=== PATIENT | female | born 1950 | race Asian ===

== ENCOUNTER 2019-08-13 12:29 | IRF | payer MEDICARE, OTHER, SELFPAY ==
[2019-08-13 12:30] VITALS: BP 108/52; PULSE 76; RESP 18; TEMP 36.8; O2SAT 99; BMI 25.6
--- NOTE | 2019-08-13 12:30 | ADMGEN ---
This patient, Margarette Beckman, was admitted to [facility] Room 230-02. Patient/family oriented to hospital policies and general routines including ID bracelet, bed and alarms, visiting hours, pain management, procedures, bathroom and other care routines, personal items, smoking policy, room service/diet, and visiting hours. Valuables list has been completed. Information on how to activate the Rapid Response Team has been discussed. Patient/Family are encouraged to report perceived risks to care and to ask questions if they do not understand what they are told or what they should do.
[2019-08-13 13:39] VITALS: BMI 26.4
[2019-08-13] MEDS: TRAMADOL HCL 50 MG TABLET PO (15:59)
[2019-08-13 17:11] LABS: Glucose Point of Care 190 (65-105)
[2019-08-13] MEDS: metFORMIN HCL 500 MG TABLET 1000 MG PO (18:21)
[2019-08-13 20:14] LABS: Glucose Point of Care 221 (65-105)
[2019-08-13 22:00] VITALS: BP 120/64; PULSE 74; RESP 17; TEMP 37.2; O2SAT 95
[2019-08-14 05:14] LABS: Basophils Percent Auto 0.2 % (0.2-1.2); Eosinophils Absolute Auto 0.2 K/mm3 (0-0.3); Eosinophils Percent Auto 4.2 % (0-4.4); Hematocrit 34.9 % (37.0-47.0); Hemoglobin 11.5 g/dL (12.0-15.0); Immature Granulocyte Absolute 0.01 K/mm3 (0.00-0.031); Immature Granulocyte Percent A 0.2 % (0-0.5); Lymphocytes Absolute Auto 1.05 K/mm3 (0.9-3.2); Lymphocytes Percent Auto 20.2 % (18.3-44.2); Mean Corpuscular Hemoglobin 30.7 pg (26-34); Mean Corpuscular Volume 93.3 fl (80-100); Mean Platelet Volume 11.3 fl (7.4-10.4); Monocytes Absolute Auto 0.4 K/mm3 (0.1-0.6); Monocytes Percent Auto 7.1 % (2.6-8.5); Neutrophils Absolute Auto 3.5 K/mm3 (1.3-6.7); Neutrophils Percent Auto 68.1 % (45.5-73.1); Platelet Count Result 174 k/mm3 (150-375); Red Blood Count 3.74 M/mm3 (4.2-5.4); Red Cell Distribution Width 12.1 % (11.5-14.5); White Blood Count 5.2 K/mm3 (4.5-10.0)
[2019-08-14 05:27] LABS: Blood Urea Nitrogen 14 mg/dL (7-17); Calcium 8.2 mg/dL (8.4-10.2); Carbon Dioxide 29 mmol/L (22-30); Chloride 102 mmol/L (98-107); Estimated CRCL calculation 79 ml/min; Estimated Glomerular Filt Rate > 60; Glucose 177 mg/dL (65-105); Potassium 3.4 mmol/L (3.4-5.0); Sodium 135 mmol/L (137-145)
[2019-08-14 05:29] LABS: Hemoglobin A1C 7.7 % (<5.7)
[2019-08-14 06:00] VITALS: BP 123/59; PULSE 66; RESP 17; TEMP 37.1; O2SAT 99
[2019-08-14 06:50] LABS: Glucose Point of Care 167 (65-105)
[2019-08-14 08:58] VITALS: BMI 26.4
[2019-08-14] MEDS: PIOGLITAZONE HCL 30 MG TABLET PO (09:33)
[2019-08-14] MEDS: ATORVASTATIN 40 MG TABLET 80 MG PO (09:34)
[2019-08-14] MEDS: CHOLECALCIFEROL 1,000 UNIT TABLET 5000 UNITS PO (09:34)
[2019-08-14] MEDS: lisinopriL 20 MG TABLET PO (09:34)
[2019-08-14] MEDS: metFORMIN HCL 500 MG TABLET 1000 MG PO (09:34)
[2019-08-14] MEDS: CALCIUM CARBONATE (OSCAL) 500 MG TABLET PO (09:34)
[2019-08-14 11:36] LABS: Glucose Point of Care 173 (65-105)
[2019-08-14 14:00] VITALS: BP 130/64; PULSE 72; RESP 20; O2SAT 100
--- NOTE | 2019-08-14 16:28 | REHAB_ITS ---
DATE OF SERVICE: 08/14/2019 A 69-year-old right-handed female has been admitted to [facility] with the primary rehab impairment category of 03, that is brain dysfunction nontraumatic and etiological diagnosis of large acute on subacute right hemispheric dural hematoma with significant mass effect and herniation. The patient was seen [id number] on 08/14/2019 at 11:00 a.m. HISTORY OF PRESENT ILLNESS: A 69-year-old right-handed female with past medical history of uncontrolled diabetes mellitus type 2, hyperlipidemia, hypertension, lumbar radiculopathy and osteopenia, presented to [facility] on 08/09/2019 with complaints of back pain and left lower extremity weakness of 3 days duration in addition to the complaint of headache of the last 2 weeks duration and also with no history of trauma or loss of consciousness. She did report multiple falls in the past few days and has been unable to ambulate on her own and has required help from her and son. Initial evaluation documented acute on subacute right hemispheric subdural hematoma with significant mass effect and herniation. She was given anticonvulsant Keppra and mannitol in the emergency department. Neurosurgical service was consulted and the patient underwent emergent right frontotemporal craniotomy for the evacuation of the hematoma. Postoperatively, she experienced pain, became anemic, hyperglycemic and hypertensive. She was on oral pain medication. Her hemoglobin was stable, but definitely needed to be monitored in the future. Her diabetic medications restarted, those were on hold since admission. Hypertension was being controlled with lisinopril. She passed her swallowing test and was on regular consistent diabetic diet with thin liquids. The patient has history of mild arthritis. CT scan of the lumbar spine revealed disk bulging at L4-L5 and L5-S1 with the narrowing of the right lateral recess at L4-L5 and bulging L5-S1 disk abutting the S1 nerve root bilaterally. The patient's lumbar radiculopathy has caused the left lower extremity, which was the patient's baseline, not as a result of the brain surgery. She was discharged to rehab with compression devices as anticoagulation was on hold in the setting of the brain surgery. The patient has not traveled outside the [place] or had contact with someone who is ill or has traveled outside the [place] in the last 21 days. The patient has not traveled to any area of [place] that was experiencing any known transmission of the coronavirus and has not had any close personal contact with anyone that has the coronavirus. She has no fever and not experiencing lower respiratory illness symptoms. Therapy was initiated at the Acute Care Facility and the patient was transferred to us from [facility] on 08/12/2019. SURGERY OR FALL: The patient has had major surgery in the last 100 days prior to admission, has had falls in the past year and has had fall with injury in the last year as well. PAST MEDICAL HISTORY: Allergic rhinitis, diabetes mellitus, hypertension, hyperlipidemia, lumbar radiculopathy, osteoporosis, lipoprotein deficiency, periungual wart, tinea cruris, varicose veins of the lower extremities. PAST SURGICAL HISTORY: Other than the present surgery, no previous pertinent history. SOCIAL HISTORY: The patient lives in a two-story home with her with 1 step to enter. The bathroom and bedroom are on the second floor. She will need to get up 13-15 steps to get to the bathroom, but they will accommodate bed BSC on main level if necessary. is not able to physically help the patient. Cathleen, the daughter, is planning to stay with the patient following rehab. She needs to be notified when the patient is discharged, so the patient can travel to the patient's house. The
[2019-08-14 17:12] LABS: Glucose Point of Care 143 (65-105)
[2019-08-14] MEDS: LOPERAMIDE HCL 2 MG CAPSULE PO (17:13)
--- NOTE | 2019-08-14 17:13 | PC.NURSE ---
pt refuses metformin at this time. patient states she doesn't want to have any more bowel movements and she took 2 pills today . educated patient that the tablets of metformin are 500 mg so 2 tabs equals 1000 mg. pt stated she still wants to not take the evening dose. updated.
[2019-08-14 22:00] VITALS: BP 138/58; PULSE 78; RESP 16; TEMP 37; O2SAT 97
[2019-08-15 06:00] VITALS: BP 144/74; PULSE 72; RESP 16; TEMP 37; O2SAT 100
[2019-08-15] MEDS: ALENDRONATE SODIUM 70 MG TABLET PO (06:22)
[2019-08-15 06:26] LABS: Glucose Point of Care 169 (65-105)
[2019-08-15] MEDS: PIOGLITAZONE HCL 30 MG TABLET PO (08:22)
[2019-08-15] MEDS: ATORVASTATIN 40 MG TABLET 80 MG PO (08:22)
[2019-08-15] MEDS: CHOLECALCIFEROL 1,000 UNIT TABLET 5000 UNITS PO (08:22)
[2019-08-15] MEDS: metFORMIN HCL 500 MG TABLET 1000 MG PO (08:22)
[2019-08-15] MEDS: CALCIUM CARBONATE (OSCAL) 500 MG TABLET PO (08:22)
[2019-08-15] MEDS: lisinopriL 20 MG TABLET PO (08:22)
[2019-08-15 11:34] LABS: Glucose Point of Care 142 (65-105)
[2019-08-15 14:00] VITALS: BP 122/70; PULSE 78; RESP 20; TEMP 36.8; O2SAT 100
[2019-08-15 20:00] VITALS: PULSE 72; RESP 16; O2SAT 98
[2019-08-15 22:00] VITALS: BP 131/56; PULSE 72; RESP 16; TEMP 36.8; O2SAT 98
[2019-08-16 06:00] VITALS: BP 146/61; PULSE 72; RESP 18; TEMP 36.3; O2SAT 97
[2019-08-16 06:43] LABS: Glucose Point of Care 167 (65-105)
[2019-08-16] MEDS: metFORMIN HCL 500 MG TABLET 1000 MG PO (08:13)
[2019-08-16] MEDS: CHOLECALCIFEROL 1,000 UNIT TABLET 5000 UNITS PO (08:13)
[2019-08-16] MEDS: lisinopriL 20 MG TABLET PO (08:14)
[2019-08-16] MEDS: CALCIUM CARBONATE (OSCAL) 500 MG TABLET PO (08:14)
[2019-08-16] MEDS: PIOGLITAZONE HCL 30 MG TABLET PO (08:14)
[2019-08-16] MEDS: ATORVASTATIN 40 MG TABLET 80 MG PO (08:14)
[2019-08-16 14:00] VITALS: BP 138/72; PULSE 76; RESP 18; TEMP 36.6; O2SAT 100
--- NOTE | 2019-08-16 16:55 | WPDNEURORHBP ---
Subjective Date/time seen: Status post craniotomy for evacuation of acute and subacute hematoma evacuation with DM,Hypertension, Lumbar radiculopathy ,Varcose veins ,tinea cruris and periungual wart Review of Systems Review of Systems: All systems reviewed & are unremarkable except as noted in HPI and below Functional Status Ambulation Ability Ability to Ambulate 10 Feet: Standby Assistance Ability to Ambulate 50 Feet With 2 Turns: Standby Assistance Ability to Ambulate 150 Feet: Standby Assistance Ambulation Assistive Devices: Cane Transfers Ability Ability to Transfer In/Out of Chair: Independent Exam Const: General: cooperative, comfortable, no acute distress, well developed, alert, awake and Physically active Nutritional Appearance: average body habitus Orientation/consciousness: patient oriented x3 Limitations: no limitations HENMT: Head: normal to inspection Ears: hearing grossly normal bilaterally General nose exam: No nasal discharge present Mouth: Yes Normal oral and palatal mucosa present Neck: Neck: full ROM Resp: Effort & Inspection: normal respiratory effort and able to speak in complete sentences Auscultation: clear to auscultation bilaterally Cardio: Rate: regular rate Rhythm: regular rhythm GI: Auscultation: normal bowel sounds Skin: Wounds: wounds noted (s/p craniotomy on right c/o itching no signs of infection) Neuro: General: patient oriented x3 and moves all extremities Cranial nerves: Yes CN's II-XII intact bilaterally, Yes Equal, round and reactive pupils present, Yes Bilaterally intact EOM present, Yes Nystagmus not present, Yes Normal facial strength present, Yes Midline tongue present, Yes Symmetric palate elevation present, Yes Ability to bilaterally rotate head present and Yes Ability to bilaterally elevate shoulders present Cognition (Neuro): normal cognition Motor exam (neuro): Abnormal motor strength present (left thanh) Psych: Mental Status: mental status grossly normal Affect: normal affect Attitude: cooperative Thought process: Normal thought process present Thought content: Yes Normal thought content present Insight: Good insight present (Psych) Judgement: Good judgement present (Psych) Objective Data Vital Signs Vital Signs: Vital Signs - 24 hr 08/15/19 20:00 08/15/19 22:00 08/16/19 06:00 Temperature 36.8 C 36.3 C L Pulse Rate 72 72 72 Respiratory Rate 16 16 18 Blood Pressure 131/56 L 146/61 H Pulse Oximetry 98 98 97 08/16/19 14:00 Temperature 36.6 C Pulse Rate 76 Respiratory Rate 18 Blood Pressure 138/72 Pulse Oximetry 100 Intake/Output Intake/Output: Intake & Output 08/13/19 08/14/19 08/15/19 08/16/19 23:59 23:59 23:59 23:59 Intake Total 360 720 960 480 Balance 360 720 960 480 Meds/Results Medications: Active Medications Generic Name Dose Route Start Last Admin Trade Name Freq PRN Reason Stop Dose Admin Alendronate Sodium 70 mg 08/15/19 06:30 08/15/19 06:22 Fosamax PO 70 mg [email or web address] TERESA Administration Atorvastatin Calcium 80 mg 08/14/19 09:00 08/16/19 08:14 Lipitor PO 80 mg DAILY TERESA Administration Calcium Carbonate 500 mg 08/14/19 09:00 08/16/19 08:14 Oscal 500 Mg PO 500 mg DAILY TERESA Administration Dextrose 12.5 gm 08/13/19 13:56 Dextrose 50% Syringe IV PUSH PRN PRN Hypoglycemia Protocol Glucagon 1 mg 08/13/19 13:56 Glucagon For Inj IM PRN PRN Hypoglycemia Protocol Glucose 15 gm 08/13/19 13:56 Glutose 15 PO PRN PRN Hypoglycemia Protocol Lisinopril 20 mg 08/14/19 09:00 08/16/19 08:14 Prinivil PO 20 mg DAILY TERESA Administration Loperamide HCl 2 mg 08/14/19 15:08 08/14/19 17:13 Loperamide Hcl PO 2 mg PRN PRN Administration Diarrhea Metformin HCl 1,000 mg 08/16/19 08:00 08/16/19 08:13 Glucophage PO 1,000 mg DAILY@0800 TERESA Administration Non-Formulary Medication 0.75 mg 08/20/19 09:00 Dulaglutide
[2019-08-16 22:00] VITALS: BP 149/55; PULSE 74; RESP 18; TEMP 36.9; O2SAT 99
[2019-08-17 06:00] VITALS: BP 124/59; PULSE 65; RESP 16; TEMP 36.9; O2SAT 100
[2019-08-17 06:29] LABS: Glucose Point of Care 152 (65-105)
[2019-08-17] MEDS: ATORVASTATIN 40 MG TABLET 80 MG PO (09:10)
[2019-08-17] MEDS: metFORMIN HCL 500 MG TABLET 1000 MG PO (09:10)
[2019-08-17] MEDS: CALCIUM CARBONATE (OSCAL) 500 MG TABLET PO (09:10)
[2019-08-17] MEDS: CHOLECALCIFEROL 1,000 UNIT TABLET 5000 UNITS PO (09:10)
[2019-08-17] MEDS: lisinopriL 20 MG TABLET PO (09:11)
[2019-08-17] MEDS: PIOGLITAZONE HCL 30 MG TABLET PO (09:11)
--- NOTE | 2019-08-17 13:59 | WPDNEURORHBP ---
Subjective Date/time seen: 08/17/19 13:59 Interval history: this 69-year-old woman is here after having had craniotomy for the a right subdural hematoma her headache is better he is walking from a walker to a cane now about 300 feet doing well I asked her whether she was on any kind of blood thinner she denies it she denies any chest pain shortness of breath fever chills or sore throat and probably will be ready to be discharged on August 19, 2019 with the home health PT OT Review of Systems Review of Systems: All systems reviewed & are unremarkable except as noted in HPI and below Functional Status Ambulation Ability Ability to Ambulate 10 Feet: Independent Ability to Ambulate 50 Feet With 2 Turns: Independent Ability to Ambulate 150 Feet: Independent Ambulation Assistive Devices: None and Cane Transfers Ability Ability to Transfer In/Out of Chair: Independent Exam Const: General: comfortable and no acute distress HENMT: General nose exam: Normal nares present Mouth: Yes moist mucous membranes Eyes: General: appearance normal, both eyes and all related structures Neck: Neck: supple and no JVD Resp: Effort & Inspection: normal respiratory effort Auscultation: clear to auscultation bilaterally Cardio: Rate: regular rate Rhythm: regular rhythm GI: GI Palp: Yes Soft to palpation Auscultation: normal bowel sounds Skin: General skin exam: normal color and no rashes or lesions noted Neuro: Other: the patient's weakness has improved she is in much better shape than she was before and will probably be ready to be discharged in couple of days Extrem: General: normal to inspection Psych: Mental Status: mental status grossly normal Objective Data Vital Signs Vital Signs: Vital Signs - 24 hr 08/16/19 14:00 08/16/19 22:00 08/17/19 06:00 Temperature 36.6 C 36.9 C 36.9 C Pulse Rate 76 74 65 Respiratory Rate 18 18 16 Blood Pressure 138/72 149/55 H 124/59 L Pulse Oximetry 100 99 100 Intake/Output Intake/Output: Intake & Output 08/14/19 08/15/19 08/16/19 08/17/19 23:59 23:59 23:59 23:59 Intake Total 720 960 720 720 Balance 720 960 720 720 Meds/Results Medications: Active Medications Generic Name Dose Route Start Last Admin Trade Name Freq PRN Reason Stop Dose Admin Alendronate Sodium 70 mg 08/15/19 06:30 08/15/19 06:22 Fosamax PO 70 mg [email or web address] TERESA Administration Atorvastatin Calcium 80 mg 08/14/19 09:00 08/17/19 09:10 Lipitor PO 80 mg DAILY TERESA Administration Calcium Carbonate 500 mg 08/14/19 09:00 08/17/19 09:10 Oscal 500 Mg PO 500 mg DAILY TERESA Administration Dextrose 12.5 gm 08/13/19 13:56 Dextrose 50% Syringe IV PUSH PRN PRN Hypoglycemia Protocol Glucagon 1 mg 08/13/19 13:56 Glucagon For Inj IM PRN PRN Hypoglycemia Protocol Glucose 15 gm 08/13/19 13:56 Glutose 15 PO PRN PRN Hypoglycemia Protocol Lisinopril 20 mg 08/14/19 09:00 08/17/19 09:11 Prinivil PO 20 mg DAILY TERESA Administration Loperamide HCl 2 mg 08/14/19 15:08 08/14/19 17:13 Loperamide Hcl PO 2 mg PRN PRN Administration Diarrhea Metformin HCl 1,000 mg 08/16/19 08:00 08/17/19 09:10 Glucophage PO 1,000 mg DAILY@0800 TERESA Administration Non-Formulary Medication 0.75 mg 08/20/19 09:00 Dulaglutide [Trulicity] SUB-Q 09/19/19 09:01 WEEKLY [facility] Non-Formulary Medication 25 mg 08/14/19 09:00 08/14/19 13:57 Empagliflozin [Jardiance] PO 09/13/19 09:01 Not Given DAILY [facility] Pioglitazone HCl 30 mg 08/14/19 09:00 08/17/19 09:11 Actos PO 30 mg DAILY TERESA Administration Tramadol HCl 50 mg 08/13/19 15:45 08/13/19 15:59 Ultram PO 50 mg Q4H PRN Administration Pain Vitamin D 5,000 unit 08/14/19 09:00 08/17/19 09:10 Vitamin D PO 5,000 unit DAILY TERESA Administration Labs Labs: Laboratory Results - last 24 hr 08/17/19 06:21 POC Capillary Glucos
[2019-08-17 14:00] VITALS: BP 110/60; PULSE 84; RESP 18; TEMP 36.6; O2SAT 97
[2019-08-17 22:00] VITALS: BP 130/58; PULSE 72; RESP 16; TEMP 37; O2SAT 100
[2019-08-18 06:00] VITALS: BP 131/60; PULSE 96; RESP 16; TEMP 36.4; O2SAT 93
[2019-08-18 06:53] LABS: Glucose Point of Care 159 (65-105)
--- NOTE | 2019-08-18 07:29 | PCPTNOTE ---
Margarette Beckman was evaluated for a straight cane on 08/18/2019 by this physical therapist. The straight cane will resolve patient's mobility limitations and will be used for ADL's within the home. The patient can safely use the straight cane. ?The straight cane will resolve the patient?s mobility deficits, including impaired dynamic balance and functional activity tolerance. Marnie Rich, PT, DPT
--- NOTE | 2019-08-18 08:26 | PCPTNOTE ---
Margarette Beckman was evaluated for a standard cane on 08/18/2019 by this physical therapist. The standard cane will resolve patient's mobility limitations and will be used for ADL's within the home. The patient can safely use the standard cane. ?The standard cane will resolve the patient?s mobility deficits, including transfers, walking and ADL's. Becky Sun PT
[2019-08-18] MEDS: ATORVASTATIN 40 MG TABLET 80 MG PO (09:30)
[2019-08-18] MEDS: lisinopriL 20 MG TABLET PO (09:30)
[2019-08-18] MEDS: CALCIUM CARBONATE (OSCAL) 500 MG TABLET PO (09:30)
[2019-08-18] MEDS: CHOLECALCIFEROL 1,000 UNIT TABLET 5000 UNITS PO (09:30)
[2019-08-18] MEDS: PIOGLITAZONE HCL 30 MG TABLET PO (09:30)
[2019-08-18] MEDS: metFORMIN HCL 500 MG TABLET 1000 MG PO (09:31)
--- NOTE | 2019-08-18 13:12 | PCDIET ---
Nutrition Follow-Up Complete: No nutrition diagnosis at this time. Nutrition Goal: Patient to consume 75% of meals or greater. Goal met. Patient consuming 75-100% of most meals on diabetic diet which is appropriate. Last recorded weight is 69.8 kg. Recommend obtaining new weight. Bowel Motility: Last documented BM on 08/16/19. Labs Reviewed: Glu (159) Meds Noted: Fosamax, Actos, Oscal 500, Vitamin D, Glucophage Additional Notes: Right head incision with paulo. No documented pressure sores. Recommend continuing present diet with same goal. Nutrition Monitoring and Evaluation: Follow up in 7 days.
--- NOTE | 2019-08-18 13:22 | WPDNEURORHBP ---
Subjective Date/time seen: 08/18/19 13:22 Interval history: this 69-year-old woman has done remarkably well after having had rehab post craniotomy and removal of the rather large subdural hematoma our nurse Antonina was in touch with the surgeon yesterday and they wanted to have her sutures removed from the craniotomy side and they were removed and looks pretty clean and healthy the patient's headache are much better her left-sided weakness has significantly improved she is only needing a cane to walk and she is quite aware of surroundings and quite with it I again asked her whether not she was any kind of blood thinning medication prior to her developing the hematoma post falls and she denies it Review of Systems Review of Systems: All systems reviewed & are unremarkable except as noted in HPI and below Functional Status Ambulation Ability Ability to Ambulate 10 Feet: Independent Ability to Ambulate 50 Feet With 2 Turns: Independent Ability to Ambulate 150 Feet: Independent Ambulation Assistive Devices: Cane Transfers Ability Ability to Transfer In/Out of Chair: Independent Exam Const: General: comfortable and no acute distress HENMT: General nose exam: Normal nares present Mouth: Yes moist mucous membranes Eyes: General: appearance normal, both eyes and all related structures Neck: Neck: supple and no JVD Resp: Effort & Inspection: normal respiratory effort Auscultation: clear to auscultation bilaterally Cardio: Rate: regular rate Rhythm: regular rhythm GI: GI Palp: Yes Soft to palpation Auscultation: normal bowel sounds Skin: General skin exam: normal color and no rashes or lesions noted Neuro: Other: patient's mental status is normal cranial examination is normal left-sided hemiparesis significantly improved gait is quite decent there is no ataxia and remarkable improvement post evacuation of subdural hematoma from the right side Extrem: General: normal to inspection Psych: Mental Status: mental status grossly normal Objective Data Vital Signs Vital Signs: Vital Signs - 24 hr 08/17/19 14:00 08/17/19 22:00 08/18/19 06:00 Temperature 36.6 C 37.0 C 36.4 C Pulse Rate 84 72 96 Respiratory Rate 18 16 16 Blood Pressure 110/60 130/58 L 131/60 Pulse Oximetry 97 100 93 Intake/Output Intake/Output: Intake & Output 08/15/19 08/16/19 08/17/19 08/18/19 23:59 23:59 23:59 23:59 Intake Total 960 720 960 240 Balance 960 720 960 240 Meds/Results Medications: Active Medications Generic Name Dose Route Start Last Admin Trade Name Freq PRN Reason Stop Dose Admin Alendronate Sodium 70 mg 08/15/19 06:30 08/15/19 06:22 Fosamax PO 70 mg [email or web address]@0630 TERESA Administration Atorvastatin Calcium 80 mg 08/14/19 09:00 08/18/19 09:30 Lipitor PO 80 mg DAILY TERESA Administration Calcium Carbonate 500 mg 08/14/19 09:00 08/18/19 09:30 Oscal 500 Mg PO 500 mg DAILY TERESA Administration Dextrose 12.5 gm 08/13/19 13:56 Dextrose 50% Syringe IV PUSH PRN PRN Hypoglycemia Protocol Glucagon 1 mg 08/13/19 13:56 Glucagon For Inj IM PRN PRN Hypoglycemia Protocol Glucose 15 gm 08/13/19 13:56 Glutose 15 PO PRN PRN Hypoglycemia Protocol Lisinopril 20 mg 08/14/19 09:00 08/18/19 09:30 Prinivil PO 20 mg DAILY TERESA Administration Loperamide HCl 2 mg 08/14/19 15:08 08/14/19 17:13 Loperamide Hcl PO 2 mg PRN PRN Administration Diarrhea Metformin HCl 1,000 mg 08/16/19 08:00 08/18/19 09:31 Glucophage PO 1,000 mg DAILY@0800 TERESA Administration Non-Formulary Medication 0.75 mg 08/20/19 09:00 Dulaglutide [Trulicity] SUB-Q 09/19/19 09:01 WEEKLY [facility] Non-Formulary Medication 25 mg 08/14/19 09:00 08/14/19 13:57 Empagliflozin [Jardiance] PO 09/13/19 09:01 Not Given DAILY TERESA Pioglitazone HCl 30 mg 08/14/19 09:00 08/18/19 09:30 Actos PO 30 mg DAILY TERESA Administration Tramadol HCl 50
[2019-08-18 14:00] VITALS: BP 111/53; PULSE 76; RESP 18; TEMP 36.2; O2SAT 99
--- NOTE | 2019-08-18 14:24 | RPD ---
INDIVIDUALIZED PLAN OF CARE FOR Margarette Beckman Brief Synthesis of Pre-Admission Screen, Post-Admission Evaluation and Therapy Evaluations: The patient presents to rehab with large acute on subacute right hemispheric dural hematoma w/ significant mass effect and herniation.The patient's plan of care was evaluated on 08/16/2019 at 13:30. Comorbidities include status post craniotomy for hematoma evacuation, acute postoperative pain, acute blood loss anemia, diabetes mellitus, allergic rhinitis, hypertension, hyperlipidemia, lumbar radiculopathy, osteoporosis, left-sided weakness. The patient requires physician services for neurology services, medical oversight, and coordination of care. The patient needs physician monitoring and treatment of anemia, perioperative blood loss, diabetes mellitus, hypertension, monitoring for adverse reactions to new medications, monitoring of infection, and pain control. The patient requires nursing services for frequent neuro checks, anticoagulation therapy, medication management and education, pressure relief and skin care management, monitoring of labs, diabetes management and education, and fall/safety precautions. Deficits include:ADLs, Balance, Endurance, Family Training/Education, Mobility, Pain Management, ROM, Safety, Strength, Swallowing, Transfers Primary Care Nurse Practitioner/Case Management for: Discharge Planning and Patient/Family Counseling Physical Therapy: 5 days per week for 90 minutes. Treatments may include: Therapeutic Exercise, Gait Training, Neuromuscular Re-education, Transfer Training, Community Reintegration, Bed Mobility, Patient/Family Education, Wheelchair Mobility Group Therapy/Concurrent Therapy Rationales: -Improve attention span during functional activities in a distracted environment. -Enhance problem solving and/or adequate judgment skills during functional activities in a distracted environment. -Promote increased safety awareness in a distracted environment to reduce fall risk with functional tasks, transfers, and ambulation to allow a more safe, self-sufficient return to the home environment. -Improve dynamic balance skills to promote safety and independence with functional activities in a distracted environment for maximum gain. Occupational Therapy: 5 days per week for 90 minutes. Treatments may include: Therapeutic Exercise, Therapeutic Activity, Cognitive Training, Self-Care Transfer Training, Community Reintegration, Home Management, Patient/Family Education, Wheelchair Mobility Training, Energy Conservation Training Group Therapy/Concurrent Therapy Rationales: -Allow therapist to observe and teach generalization and carry-over of skills learned in individual therapy. -Enhance problem solving and sequencing skills during therapeutic activities in a distracted environment. -Promote increased safety awareness in a realistic setting to reduce fall risk with functional tasks due to visual and verbal distractions. -Increase functional level with ADLs, ADL transfers and use of adaptive equipment through therapeutic activities with others while promoting safety to allow a more safe, self-sufficient return home. Medical Prognosis: Good Anticipated Length of Stay: 7 days Rehab Goals: Eating Goal: 06-Independent Oral Hygiene Goal: 06-Independent Toileting Hygiene Goal: 06-Independent Shower/Bathe Self Goal: 06-Independent Upper Body Dressing Goal: 06-Independent Lower Body Dressing Goal: 06-Independent Putting On/Taking Off Footwear Goal: 06-Independent Rolling Left and Right Goal: 06-Independent Sit to Lying Goal: 06-Independent Lying to Sitting on Side of Bed Goal: 06-Independent Sit to Stand Goal: 06-Independent Chair/[id number] Transfer Goal: 06-Independent Toilet Transfer Goal: 06-Independent Car Transfer Goal: 06-Independent Walk 10' Goal: 06-Independent Walk 50' with Two Turns Goal: 06-Independent Walk 150' Goal: 06-Independent Walk 10' on Uneven Surface Goal: 06-Independent 1 Step (Curb) Goal: 0
[2019-08-18 22:00] VITALS: BP 106/67; PULSE 68; RESP 18; TEMP 36.3; O2SAT 97
[2019-08-19 06:00] VITALS: BP 125/74; PULSE 63; RESP 18; TEMP 36.1; O2SAT 99
[2019-08-19 06:57] LABS: Glucose Point of Care 170 (65-105)
[2019-08-19] MEDS: PIOGLITAZONE HCL 30 MG TABLET PO (08:26)
[2019-08-19] MEDS: CALCIUM CARBONATE (OSCAL) 500 MG TABLET PO (08:26)
[2019-08-19] MEDS: ATORVASTATIN 40 MG TABLET 80 MG PO (08:27)
[2019-08-19] MEDS: metFORMIN HCL 500 MG TABLET 1000 MG PO (08:27)
[2019-08-19] MEDS: CHOLECALCIFEROL 1,000 UNIT TABLET 5000 UNITS PO (08:27)
[2019-08-19] MEDS: lisinopriL 20 MG TABLET PO (08:27)
--- NOTE | 2019-08-24 13:09 | PM.DS ---
DS: Admitting Diagnosis Admitting Diagnosis Admitting Diagnosis: Traumatic subdural hemorrhage without loss of consciousness, initial encounter DS: Discharge Diagnosis Discharge Diagnosis (1) Hyperlipidemia: Code(s): E78.5 - Hyperlipidemia, unspecified Status: Acute (2) Osteopenia: Code(s): M85.80 - Other specified disorders of bone density and structure, unspecified site Status: Acute (3) Diabetes 1.5, managed as type 2: Code(s): E13.9 - Other specified diabetes mellitus without complications Status: Acute (4) Lumbar radiculopathy: Code(s): M54.16 - Radiculopathy, lumbar region Status: Acute (5) Hypertension: Code(s): I10 - Essential (primary) hypertension Status: Acute (6) Subdural hemorrhage following injury: Code(s): S06.5X9A - Traumatic subdural hemorrhage with loss of consciousness of unspecified duration, initial encounter Status: Acute (7) H/O craniotomy: Code(s): Z98.890 - Other specified postprocedural states Status: Acute DS: Summary Hospital Course Reason for hospitalization: the patient was admitted with the above-mentioned diagnosis and did remarkably well in over rehab and was discharged home with outpatient therapy no falls were recorded during admission she was able to achieve the following independent measures during the course of hospitalization Hospital Course: eating independent, oral hygiene independent, toileting independent, bathing independent, upper body dressing independent lower body dressing independent footwear independent rolling in bed independent sitting to lying independent lying to sitting independent sit to stand independent chair transfers independent toilet transfers independent car transfers independent walking 10 feet independent walking 50 feet with to his turns independent walking 150 feet independent walking 10 feet uneven surfaces independent carb or set up independent 4 steps independent 12 steps independent picking about object independent wheelchair and wheelchair 50 and 150 not applicable Time Spent with Patient Time attestation: Total time spent providing and/or coordinating discharge services: Exam Const: General: comfortable and no acute distress HENMT: General nose exam: Normal nares present Mouth: Yes dry mucous membranes Other: craniotomy site well healed Eyes: General: appearance normal, both eyes and all related structures Neck: Neck: supple and no JVD Resp: Effort & Inspection: normal respiratory effort Auscultation: clear to auscultation bilaterally Cardio: Rate: regular rate Rhythm: regular rhythm GI: GI Palp: Yes Soft to palpation Auscultation: normal bowel sounds Skin: General skin exam: normal color and no rashes or lesions noted Neuro: Other: patient remained awake alert fell oriented in time place and person with fluent speech and resolution of left-sided weakness Extrem: General: normal to inspection Psych: Mental Status: mental status grossly normal DS: Data Data Completed and Pending Completed studies during hospitalization: the patient's white count was 5200 hemoglobin of 11.5 hematocrit of 34.9 and platelet count of 174 the Accu-Cheks fairly decent most of them in mid 100s sodium 135 potassium 3.4 BUN 14 creatinine of 0.5 and GFR of more than 60 Discharge Plan Discharge Attending physician on discharge: Rito Salas Discharging Clinician: Rito Salas Anticipated Discharge Date/Time: 08/19/19 13:26 Patient Disposition: Home, Self-Care Activity: may shower and no driving Diet: diabetic Discharge Instructions: Follow up with Dr Angelito Nazario [facility] [address] [facility] [phone] CALL FOR APPT FOLLOW UP WITH DR JOIE CASTRO FOR A VISIT WITHIN ONE WEEK AFTER DC FROM [facility] [phone] CALL FOR APPT [place] were removed on 08/19/2019 without
== END 2019-08-19 15:15 | disposition home or self-care (01) | DRG 949 ==
PROVIDERS: Admitting Provider Psychiatry & Neurology Neurology; PCP Family Medicine; Visit Provider Psychiatry & Neurology Neurology
DX: Z48.811 Encounter for surgical aftercare following surgery on the nervous system (principal); G81.94 Hemiplegia, unspecified affecting left nondominant side; S06.5X0D Traumatic subdural hemorrhage without loss of consciousness, subsequent encounter; D64.9 Anemia, unspecified; E11.65 Type 2 diabetes mellitus with hyperglycemia; E78.5 Hyperlipidemia, unspecified; I10 Essential (primary) hypertension; M54.16 Radiculopathy, lumbar region; M81.0 Age-related osteoporosis without current pathological fracture; M85.80 Other specified disorders of bone density and structure, unspecified site; Z98.890 Other specified postprocedural states; Z79.84 Long term (current) use of oral hypoglycemic drugs
CPT/HCPCS: 36415; 80048; 83036; 85025; 97110; 97112; 97116; 97161; 97165; 97530; 97535; A9270